=== PATIENT | female | born 1965 | race Caucasian/White ===

== ENCOUNTER → 2016-05-29 | Outpatient (CLI) | payer OTHER ==
--- NOTE | 2016-05-29 12:10 | DX ---
Bilateral Knees - 6 Views Total dated May 29, 2016 Indication: Knee pain. Technique: Bilateral AP, lateral and Merchant views. Comparison: None. Finding: The normally mineralized bones are anatomically aligned. Joint spaces are well preserved. Bi lateral patellar is normally positioned on the Merchant view. No lateral tilt or lateral subluxation. No marginal erosions or osteophytes. A moderate right suprapatellar effusion is present on the right . No left effusion. Impression: 1. Right knee effusion. 2. No erosive or productive arthropathy.
== END ==
LOC: BRMIMAGING 09:48
PROVIDERS: ATTEND Internal Medicine Rheumatology
DX: M25.461 Effusion, right knee (principal)
CPT/HCPCS: 73562-PO

== ENCOUNTER → 2016-06-02 | Outpatient (CLI) | payer OTHER ==
--- NOTE | 2016-06-02 20:06 | MA ---
Screening Digital Mammogram With iCAD Indication: Routine screening. Mother diagnosed with breast cancer at the age of 39. Technique: Standard cephalocaudal and mediolateral oblique projections are obtained. This examinati on is processed by the iCAD computer-aided detection system. Comparison: April 2015, April 2014, April 2013, and June 2010 Breast density: Type B. Findings: CAD was reviewed. Focal asymmetry has developed in the deep right breast at the level of th e nipple line on the MLO view. No correlate on the right CC view. The left mammograms are negative. N o malignant-type calcification or architectural distortion. Impression: New focal asymmetry versus dense superimposed fibroglandular tissue in the deep right vale ast. BI-RADS 0: Needs additional imaging evaluation. Recommendation: Right diagnostic mammograms including spot compressed MLO, exaggerated lateral CC, a nd true lateral views. If a dominant asymmetry persists, proceed with ultrasound of the discretion of the interpreting radiologist. [facility] will send a result letter to the patient. Negative mammography should not preclude additional workup of a clinically suspicious finding. The patient's information is entered into a reminder system with a target due date for her next mammo gram.
== END ==
LOC: BRMIMAGING 14:42
DX: Z12.31 Encounter for screening mammogram for malignant neoplasm of breast (principal); Z80.3 Family history of malignant neoplasm of breast
CPT/HCPCS: G0202

== ENCOUNTER → 2016-06-10 | Outpatient (CLI) | payer OTHER ==
--- NOTE | 2016-06-10 09:45 | MA ---
Right Diagnostic Digital Mammogram with iCAD Clinical Indications: Asymmetric density on recent screening mammogram. Technique: Digital spot compression mediolateral oblique, exaggerated CC and true lateral views. Thi s examination was processed by the iCAD computer-aided detection system. Comparison: Recent mammogram. 2016, 2014, 2013, 2012 Breast Density: 3, 50-75%. Findings: Previous asymmetric density identified is no longer detected on the additional views or wayne e lateral views. This is consistent with normal overlapping breast parenchyma. Impression: ACR BI-RADS 2: Benign right mammogram. Recommendation: Annual mammograms with next screening mammograms in May 2017. [facility] will send a result letter to the patient. Negative mammography should not preclude additional workup of a clinically suspicious finding. Findings and recommendations have been discussed with the patient who agrees with the plan. The patient's information is entered into a reminder system with a target due date for her next mammo gram.
== END ==
LOC: BRMIMAGING 08:41
DX: R92.2 Inconclusive mammogram (principal)
CPT/HCPCS: G0206